=== PATIENT | female | born 1950 | race African-American/Black ===

== ENCOUNTER → 2016-08-12 | Outpatient (CLI) | payer MEDICARE, MEDICAID ==
[~2016-08-12] MED LIST: ASPI81TA2 PO; CYCL-374 PO; EZET10TA PO; EZET1TAB7; FURO-151 PO; HYDR-522 PO; KETO-20; MIRT45TA PO; OMEP40CA; POTA20TA34; SIMV40TA2 PO
== END | disposition home or self-care (01) ==
LOC: MAMMO 10:05
PROVIDERS: ATTEND Family Medicine
DX: Z12.31 Encounter for screening mammogram for malignant neoplasm of breast (principal)
CPT/HCPCS: G0202

== ENCOUNTER 2017-03-20 16:39 | Emergency (ER) | payer MEDICARE, MEDICAID ==
[~2017-03-20] VITALS: Ht 154.9 cm; Wt 116.0 kg
[~2017-03-20 16:39] MED LIST changes: +ASPI-1160 PO; -ASPI81TA2 PO; -CYCL-374 PO; +CYCL10TA7 PO; -EZET10TA PO; +ZET10 PO
[2017-03-20 16:50] VITALS: BP 182/58
[2017-03-20 18:11] LABS: BASOPHILS % 0.8 % (0.0-2.0); EOSINOPHILS % 0.6 % (0.0-5.0); HEMATOCRIT. 39.2 % (36.0-48.0); LYMPHOCYTES % 25.6 % (20.0-50.0); MEAN CORPUSCULAR VOLUME 81.7 fL (81.0-99.0); MEAN PLATELET VOLUME 8.4 fl (7.4-10.4); MONOCYTES % 11.6 % (2.0-8.0); NEUTROPHILS % 61.4 % (40.0-76.0); PLATELET 287 x1000/uL (130-400)
[2017-03-20 18:16] LABS: INR 1.1; PROTHROMBIN TIME 11.4 sec (9.4-11.6)
[2017-03-20 18:26] LABS: CARBON DIOXIDE 27 mEq/L (21-32); CHLORIDE 105 mEq/L (98-107); TROPONIN I 0.02 ng/mL (0.00-0.04)
== END 2017-03-21 00:37 | disposition left against medical advice (07) ==
LOC: ER 17:03
DX: R07.9 Chest pain, unspecified (principal); Z53.21 Procedure and treatment not carried out due to patient leaving prior to being seen by health care provider
CPT/HCPCS: 36415; 80053; 83880; 84484; 85025; 85610; 93005